=== PATIENT | female | born 1975 | race Caucasian/White ===

== ENCOUNTER → 2017-02-10 | Outpatient (CLI) | payer BC | LOC: FIMAGING 15:40 | PROVIDERS: ATTEND Internal Medicine Hematology & Oncology | DX: R25.2 Cramp and spasm (principal); E88.01 Alpha-1-antitrypsin deficiency ==

== ENCOUNTER → 2017-02-20 | Outpatient (CLI) | payer BC | LOC: FIMAGING 13:32 | DX: M79.662 Pain in left lower leg (principal); Z98.890 Other specified postprocedural states ==

== ENCOUNTER 2017-02-27 19:09 | Emergency (ER) | payer BC ==
[2017-02-27 19:17] VITALS: TEMP 98.8; O2SAT 100
--- NOTE | 2017-02-27 19:24 | EDPHY ---
H & P Stated Complaint: chest pain and left calf pain Time Seen by Provider: 02/27/17 19:23 HPI/ROS: CHIEF COMPLAINT: Resolved chest pain HISTORY OF PRESENT ILLNESS: The patient presents the ED after an episode of resolved chest pain. The patient is approximately 3 weeks status post left labial replacement. She does have a prior history of DVT. She has been on 40 mg of subcu Lovenox and surgery. Approximately week ago she did have left calf pain however ultrasound did not demonstrate evidence of DVT at that point time. Tonight the patient experienced a brief episode of left-sided sharp chest pain. The patient states that symptoms have abated. She denies any shortness of breath or pleuritic chest pain currently. REVIEW OF SYSTEMS: A comprehensive 10 point review of systems is otherwise negative aside from elements mentioned in the history of present illness. Source: Patient Exam Limitations: No limitations - Personal History LMP (Females 10-55): 1-7 Days Ago Current Tetanus/Diphtheria Vaccine: Yes Tetanus Vaccine Date: 2012 - Medical/Surgical History Hx Asthma: No Hx Chronic Respiratory Disease: No Hx Diabetes: No Hx Cardiac Disease: No Hx Renal Disease: No Hx Cirrhosis: No Hx Alcoholism: No Hx HIV/AIDS: No Hx Splenectomy or Spleen Trauma: No Other PMH: DVT 2015. bone graft to left hip-2015, labrium repair-2015, melanoma 2013, choleycystectomy, lasik surgery. - Social History Smoking Status: Never smoked - Physical Exam Exam: General Appearance: Alert, no distress Eyes: Pupils equal and round no pallor or injection ENT, Mouth: Mucous membranes moist Respiratory: There are no retractions, lungs are clear to auscultation Cardiovascular: Regular rate and rhythm Gastrointestinal: Abdomen is soft and nontender, no masses, bowel sounds normal Neurological: A&O, normal motor function, normal sensory exam, normal cranial nerves Skin: Warm and dry, no rashes Musculoskeletal: Neck is supple nontender Extremities: symmetrical, full range of motion Constitutional: Initial Vital Signs Temperature (C) 37.1 C 02/27/17 19:14 Heart Rate 92 02/27/17 19:14 Respiratory Rate 18 02/27/17 19:14 Blood Pressure 136/92 H 02/27/17 19:14 O2 Sat (%) 100 02/27/17 19:14 O2 Delivery Mode Room Air Allergies/Adverse Reactions: No Known Allergies Allergy (Unverified 02/27/17 19:17) Home Medications: Medication Instructions Recorded Enoxaparin [Lovenox 60 MG (*)] 50 mg SQ Q12 #10 syr 12/31/15 Medical Decision Making - Diagnostics EKG Interpretation: EKG: Complete interpretation has been separately recorded in the [employer] archive. Summary impression: Sinus rhythm, rate 78 ED Course/Re-evaluation: The patient presents to the ED after a brief episode of sharp resolved chest pain. All she does have a history of PE and DVT, she has been maintained Lovenox since her recent surgery. The patient had a negative ultrasound of her leg within the past week. The patient has a slightly elevated D-dimer of 0.51. We discussed the risks and benefits of performing CT angiography. At this point time the patient would like to hold off on that study and assess for any recurrent symptoms of chest pain or shortness of breath. I think that is reasonable. The patient understands to have a repeat ultrasound in 1 weeks time should she have any ongoing left calf pain. The patient will clearly return to the emergency department should she developed sharp chest pain, difficulty breathing, palpitations or other concerns. She will follow up with her regular oncologist Dr. Cely Suarez since as scheduled. She will continue to to take her Lovenox on a daily basis. Differential Diagnosis: Differential diagnosis considered includes DVT, PE, pleurisy - Data Points Laboratory Results: Laboratory Results 02/27/17 19:45 02/27/17 19:45 02/27/17 02/27/17 02/27/17 19:45 19:45 19:45 WBC 6.22 10^3/uL 10^3/uL (3.80-9.50) RBC 4.49 10^6/uL 10^6/uL (4.18-5.33) Hgb 14.3 g/dL g/dL (12.6-16.3) Hct 41.0 % % (38.0-47.0) MCV 91.3 fL fL (81.5-99.8) MCH 31.8 pg pg (27.9-34.1) MCHC 34.9 g/dL g/dL (32.4-36.7) RDW 12.6 % % (11.5-15.2) Plt Count 341 10^3/uL 10^3/uL (150-400) MPV 8.6 fL L fL (8.7-11.7) Neut % (Auto) 55.7 % % (39.3-74.2) Lymph % (Auto) 35.0 % % (15.0-45.0) [place] % (Auto) 5.6 % % (4.5-13.0) Eos % (Auto) 2.6 % % (0.6-7.6) Baso % (Auto) 0.6 % % (0.3-1.7) Nucleat RBC Rel Count 0.0 % % (0.0-0.2) Absolute Neuts (auto) 3.46 10^3/uL 10^3/uL (1.70-6.50) Absolute Lymphs (auto) 2.18 10^3/uL 10^3/uL (1.00-3.00) Absolute Monos (auto) 0.35 10^3/uL 10^3/uL (0.30-0.80) Absolute Eos (auto) 0.16 10^3/uL 10^3/uL (0.03-0.40) Absolute Basos (auto) 0.04 10^3/uL 10^3/uL (0.02-0.10) Absolute Nucleated RBC 0.00 10^3/uL 10^3/uL (0-0.01) Immature Gran % 0.5 % % (0.0-1.1) Immature Gran # 0.03 10^3/uL 10^3/uL (0.00-0.10) D-Dimer 0.51 ug/mLFEU H ug/mLFEU (0.00-0.50) Sodium 137 mEq/L mEq/L (134-144) Potassium 3.5 mEq/L mEq/L (3.5-5.2) Chloride 98 mEq/L mEq/L (97-110) Carbon Dioxide 26 mEq/l mEq/l (22-31) Anion Gap 13 mEq/L mEq/L (8-16) BUN 10 mg/dL mg/dL (7-23) Creatinine 0.7 mg/dL mg/dL (0.6-1.0) Estimated GFR > 60 Glucose 93 mg/dL mg/dL (70-100) Calcium 10.4 mg/dL mg/dL (8.5-10.4) Departure - Departure Disposition: Home, Routine, Self-Care Clinical Impression: Chest pain Condition: Good Instructions: Chest Pain (ED) Additional Instructions: 1. Please follow-up with your vice president of business development as scheduled. 2. Please return to the ED immediately for any protracted chest pain, difficulty breathing, worsening symptoms or other concerns. 3. Repeat lower extremity ultrasound in 1 week for any ongoing calf pain. 4. Continue Lovenox as prescribed. Referrals: Shakira Segovia MD [Primary Care Provider] - As per Instructions
--- NOTE | 2017-02-27 19:31 | CPEKG ---
Heart Rate: 78 RR Interval: 769 P-R Interval: 160 QRSD Interval: 84 QT Interval: 364 QTC Interval: 415 P [place]: 74 QRS [place]: 75 T Wave [place]: 39 EKG Severity - NORMAL ECG - EKG Impression: SINUS RHYTHM Electronically Signed By: Vishal Gama 27-Feb-2017 21:06:20
[2017-02-27 19:55] LABS: % IMMATURE GRANULYOCYTES 0.5 % (0.0-1.1); ABSOLUTE IMMATURE GRANULOCYTES 0.03 10^3/uL (0.00-0.10); ADD DIFF? NO; ADD MORPH? NO; ADD SCAN? NO; ATYPICAL LYMPHOCYTE FLAG 10 (0-99); FRAGMENT RBC FLAG 0 (0-99); HEMOGLOBIN 14.3 g/dL (12.6-16.3); LEFT SHIFT FLG 0 (0-99); LIPEMIA HEMOLYSIS FLAG 90 (0-99); MEAN CELL HEMOGLOBIN 31.8 pg (27.9-34.1); MEAN CELL HEMOGLOBIN CONCENTR. 34.9 g/dL (32.4-36.7); MEAN CELL VOLUME 91.3 fL (81.5-99.8); MEAN PLATELET VOLUME 8.6 fL (8.7-11.7); PLATELET CLUMPS FLAG 0 (0-99); PLATELET COUNT 341 10^3/uL (150-400); RED BLOOD CELL COUNT 4.49 10^6/uL (4.18-5.33); RED CELL DISTRIBUTION WIDTH 12.6 % (11.5-15.2)
[2017-02-27 20:10] LABS: ANION GAP 13 mEq/L (8-16); CALCIUM 10.4 mg/dL (8.5-10.4); CARBON DIOXIDE 26 mEq/l (22-31); CHLORIDE 98 mEq/L (97-110); CREATININE 0.7 mg/dL (0.6-1.0); GLOMERULAR FILTRATION RATE > 60; GLUCOSE 93 mg/dL (70-100); POTASSIUM 3.5 mEq/L (3.5-5.2); SODIUM 137 mEq/L (134-144)
[2017-02-27 20:56] VITALS: BP 110/66; PULSE 64; RESP 16
== END 2017-02-27 20:56 | disposition home or self-care (01) ==
DX: R07.9 Chest pain, unspecified (principal)

== ENCOUNTER → 2017-04-03 | Outpatient (CLI) | payer BC | LOC: FIMAGING 13:58 | PROVIDERS: ATTEND Obstetrics & Gynecology | DX: Z12.31 Encounter for screening mammogram for malignant neoplasm of breast (principal) | CPT/HCPCS: G0202 ==

== ENCOUNTER 2017-05-10 22:23 | Emergency (ER) | payer BC ==
[2017-05-10] MEDS ORDERED: NS 1,000 ML IV ONE (22:39)
--- NOTE | 2017-05-10 22:39 | EDPHY ---
H & P Stated Complaint: PVCs and high BP HPI/ROS: HPI CHIEF COMPLAINT: Hypertension, palpitations HISTORY OF PRESENT ILLNESS: This patient very pleasant 41-year-old female, she is otherwise healthy with no significant medical history except for DVT postoperatively, she distally has had hip surgery, she presents emergency room with palpitations and high blood pressure this evening. Patient reports on Monday she had some palpitations when she was trying to go to sleep she ignore these and then went to sleep. This evening she was trying to go to bed and notice palpitations she describes her heart as fast, and irregular. 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 She denies any chest pain or shortness of breath. She does endorse some nausea. She has no cardiac history. Never had a PE. She denies recent illness specifically denies fever or pleuritic pain. Past Medical History: Denies significant medical history except for DVT postoperatively. Past Surgical History: Hip surgery. Social History: Denies daily use drugs alcohol tobacco products. Works as a nurse. Family History: Noncontributory ROS REVIEW OF SYSTEMS: A comprehensive 10 point review of systems is otherwise negative aside from elements mentioned in the history of present illness. Exam Constitutional appears well nontoxic, triage nursing summary reviewed, vital signs reviewed, awake/alert. Eyes normal conjunctivae and sclera, EOMI, PERRLA. HENT normal inspection, atraumatic, moist mucus membranes, no epistaxis, neck supple/ no meningismus, no raccoon eyes. Respiratory clear to auscultation bilaterally, normal breath sounds, no respiratory distress, no wheezing. Cardiovascular rate normal, regular rhythm, no murmur, no edema, distal pulses normal. Gastrointestinal soft, non-tender, no rebound, no guarding, normal bowel sounds, no distension, no pulsatile mass. Genitourinary no CVA tenderness. Musculoskeletal no midline vertebral tenderness, full range of motion, no calf swelling, no tenderness of extremities, no meningismus, good pulses, neurovascularly intact. Skin pink, warm, & dry, no rash, skin atraumatic. Neurologic awake, alert and oriented x 3, AAOx3, moves all 4 extremities equally, motor intact, sensory intact, CN II-XII intact, normal cerebellar, normal vision, normal speech. Psychiatric normal mood/affect. Heme/Lymph/Immune no lymphadenopathy. Differential Diagnosis: Includes but is not limited to in a particular order electrolyte disturbance, anxiety, pulmonary embolism, cardiac arrhythmia, the pericarditis, myocarditis, pneumonia, PVC, hypertensive urgency Medical Decision Making: Plan for this patient full quality assurance monitor, IV establishment, EKG, check troponin, check D-dimer, check TSH, check electrolytes , gentle IV hydration Re-evaluation: EKG interpretation by me on record in [employer] system. Impression time of EKG 2240, sinus tachycardia rate of 105, PVC present. First-degree AV block present. Otherwise no acute ischemic change. 1232: Reassessment at this time. Patient resting comfortably. Denies chest pain or shortness of breath. Feels much better after IV fluids. Blood pressure improved to 140 systolic. I do see very infrequent PVCs on the monitor. Otherwise no signs of cardiac arrhythmia for the 3 hr that she has been here. Her EKG is nonischemic. I do recommend she follows up with Cardiology for palpitations on outpatient basis. Additionally I recommend she return emergency room if she develops chest pain shortness of breath or further palpitations or syncope. She is comfortable this plan. She is a nurse. I went over her blood work EKG lab results with her. ED x-ray chest one view: Negative for acute cardiopulmonary disease. Source: Patient - Personal History LMP (Females 10-55): 15-21 Days Ago Current Tetanus/Diphtheria Vaccine: Yes Current Tetanus Diphtheria and Acellular Pertussis (TDAP): Yes Tetanus Vaccine Date: 2012 - Medical/Surgical History Hx Asthma: No Hx Chronic Respiratory Disease: No Hx Diabetes: No Hx Cardiac Disease: No Hx Renal Disease: No Hx Cirrhosis: No Hx Alcoholism: No Hx HIV/AIDS: No Hx Splenectomy or Spleen Trauma: No Other PMH: DVT 2015. bone graft to left hip-2015, labrium repair-2015, melanoma 2013, choleycystectomy, lasik surgery. - Social History Smoking Status: Never smoked Constitutional: Initial Vital Signs Temperature (C) 36.7 C 05/10/17 22:25 Heart Rate 98 05/10/17 22:25 Respiratory Rate 16 05/10/17 22:25 Blood Pressure 166/90 H 05/10/17 22:25 O2 Sat (%) 99 05/10/17 22:25 O2 Delivery Mode Room Air Allergies/Adverse Reactions: No Known Allergies Allergy (Verified 05/10/17 22:28) Home Medications: Medication Instructions Recorded Pantoprazole Sodium [Protonix] 05/10/17 Medical Decision Making - Data Points Laboratory Results: Laboratory Results 05/10/17 22:45 05/10/17 22:45 05/10/17 05/10/17 05/10/17 22:45 22:45 22:45 WBC 10.85 10^3/uL H 10^3/uL (3.80-9.50) RBC 4.27 10^6/uL 10^6/uL (4.18-5.33) Hgb 13.2 g/dL g/dL (12.6-16.3) Hct 37.9 % L % (38.0-47.0) MCV 88.8 fL fL (81.5-99.8) MCH 30.9 pg pg (27.9-34.1) MCHC 34.8 g/dL g/dL (32.4-36.7) RDW 12.2 % % (11.5-15.2) Plt Count 233 10^3/uL 10^3/uL (150-400) MPV 8.6 fL L fL (8.7-11.7) Neut % (Auto) 59.0 % % (39.3-74.2) Lymph % (Auto) 32.1 % % (15.0-45.0) [place] % (Auto) 6.8 % % (4.5-13.0) Eos % (Auto) 1.4 % % (0.6-7.6) Baso % (Auto) 0.3 % % (0.3-1.7) Nucleat RBC Rel Count 0.0 % % (0.0-0.2) Absolute Neuts (auto) 6.41 10^3/uL 10^3/uL (1.70-6.50) Absolute Lymphs (auto) 3.48 10^3/uL H 10^3/uL (1.00-3.00) Absolute Monos (auto) 0.74 10^3/uL 10^3/uL (0.30-0.80) Absolute Eos (auto) 0.15 10^3/uL 10^3/uL (0.03-0.40) Absolute Basos (auto) 0.03 10^3/uL 10^3/uL (0.02-0.10) Absolute Nucleated RBC 0.00 10^3/uL 10^3/uL (0-0.01) Immature Gran % 0.4 % % (0.0-1.1) Immature Gran # 0.04 10^3/uL 10^3/uL (0.00-0.10) PT 12.9 SEC SEC (12.0-15.0) INR 0.95 (0.83-1.16) APTT 31.2 SEC SEC (23.0-38.0) D-Dimer 0.35 ug/mLFEU ug/mLFEU (0.00-0.50) Sodium 139 mEq/L mEq/L (134-144) Potassium 3.4 mEq/L L mEq/L (3.5-5.2) Chloride 102 mEq/L mEq/L (97-110) Carbon Dioxide 24 mEq/l mEq/l (22-31) Anion Gap 13 mEq/L mEq/L (8-16) BUN 11 mg/dL mg/dL (7-23) Creatinine 0.6 mg/dL mg/dL (0.6-1.0) Estimated GFR > 60 Glucose 102 mg/dL H mg/dL (70-100) Calcium 9.7 mg/dL mg/dL (8.5-10.4) Magnesium 1.8 mg/dL mg/dL (1.6-2.3) Total Bilirubin < 0.1 mg/dL L mg/dL (0.1-1.4) Conjugated Bilirubin 0.1 mg/dL mg/dL (0.0-0.5) Unconjugated Bilirubin 0.0 mg/dL mg/dL (0.0-1.1) AST 24 IU/L IU/L (14-46) ALT 26 IU/L IU/L (9-52) Alkaline Phosphatase 59 IU/L IU/L (38-126) Creatine Kinase 96 IU/L IU/L (0-156) CK-MB (CK-2) Fraction 0.81 ng/mL ng/mL (0.00-3.19) Troponin I < 0.012 ng/mL ng/mL (0.000-0.034) NT-Pro-B Natriuret Pep 64 pg/mL pg/mL (0-125) Total Protein 6.7 g/dL g/dL (6.3-8.2) Albumin 4.3 g/dL g/dL (3.5-5.0) TSH 3.840 uIU/mL uIU/mL (0.465-4.680) Medications Given: Discontinued Medications Sodium Chloride (Ns) 1,000 mls @ 0 mls/hr IV EDNOW ONE; Wide Open PRN Reason: Protocol Stop: 05/10/17 22:40 Last Admin: 05/10/17 22:57 Dose: 1,000 mls Departure - Departure Disposition: Home, Routine, Self-Care Clinical Impression: Palpitations Condition: Good Instructions: Heart Palpitations (ED) Additional Instructions: 1. Return emergency room if develops any worsening symptoms includes chest pain , shortness of breath 2. Please follow up with Cardiology outpatient basis. Referrals: Shakira Segovia MD [Primary Care Provider] - As per Instructions Luis Hancock MD [Medical Doctor] - As per Instructions
--- NOTE | 2017-05-10 22:42 | CPEKG ---
Heart Rate: 105 RR Interval: 571 P-R Interval: 208 QRSD Interval: 84 QT Interval: 344 QTC Interval: 455 P [place]: 73 QRS [place]: 82 T Wave [place]: -2 EKG Severity - ABNORMAL ECG - EKG Impression: SINUS TACHYCARDIA EKG Impression: VENTRICULAR PREMATURE COMPLEX EKG Impression: FIRST DEGREE AV BLOCK Electronically Signed By: Willie Farr 11-May-2017 07:19:27
[2017-05-10 23:11] LABS: % IMMATURE GRANULYOCYTES 0.4 % (0.0-1.1); ABSOLUTE IMMATURE GRANULOCYTES 0.04 10^3/uL (0.00-0.10); ADD DIFF? NO; ADD MORPH? NO; ADD SCAN? NO; ATYPICAL LYMPHOCYTE FLAG 0 (0-99); FRAGMENT RBC FLAG 0 (0-99); HEMATOCRIT 37.9 % (38.0-47.0); HEMOGLOBIN 13.2 g/dL (12.6-16.3); LEFT SHIFT FLG 0 (0-99); LIPEMIA HEMOLYSIS FLAG 90 (0-99); MEAN CELL HEMOGLOBIN 30.9 pg (27.9-34.1); MEAN CELL HEMOGLOBIN CONCENTR. 34.8 g/dL (32.4-36.7); MEAN CELL VOLUME 88.8 fL (81.5-99.8); MEAN PLATELET VOLUME 8.6 fL (8.7-11.7); PLATELET CLUMPS FLAG 0 (0-99); PLATELET COUNT 233 10^3/uL (150-400); RED BLOOD CELL COUNT 4.27 10^6/uL (4.18-5.33); RED CELL DISTRIBUTION WIDTH 12.2 % (11.5-15.2)
[2017-05-10 23:20] LABS: INR 0.95 (0.83-1.16); PROTIME(PATIENT) 12.9 SEC (12.0-15.0)
[2017-05-10 23:21] LABS: APTT 31.2 SEC (23.0-38.0)
[2017-05-10 23:26] LABS: ALANINE AMINOTRANSFERASE 26 IU/L (9-52); ALBUMIN 4.3 g/dL (3.5-5.0); ALKALINE PHOSPHATASE 59 IU/L (38-126); ANION GAP 13 mEq/L (8-16); ASPARTATE AMINOTRANSFERASE 24 IU/L (14-46); CALCIUM 9.7 mg/dL (8.5-10.4); CARBON DIOXIDE 24 mEq/l (22-31); CHLORIDE 102 mEq/L (97-110); CREATININE 0.6 mg/dL (0.6-1.0); GLOMERULAR FILTRATION RATE > 60; GLUCOSE 102 mg/dL (70-100); MAGNESIUM 1.8 mg/dL (1.6-2.3); POTASSIUM 3.4 mEq/L (3.5-5.2); SODIUM 139 mEq/L (134-144); TOTAL PROTEIN 6.7 g/dL (6.3-8.2)
[2017-05-10 23:29] VITALS: PULSE 90
[2017-05-10 23:34] LABS: BILIRUBIN,TOTAL < 0.1 mg/dL (0.1-1.4); BILIRUBIN-CONJUGATED 0.1 mg/dL (0.0-0.5)
[2017-05-10 23:39] LABS: CREATINE KINASE-MB FRACTION 0.81 ng/mL (0.00-3.19); TROPONIN I < 0.012 ng/mL (0.000-0.034)
[2017-05-11 00:42] VITALS: BP 122/74; RESP 18; TEMP 98.4; O2SAT 95
== END 2017-05-11 00:41 | disposition home or self-care (01) ==
DX: R00.2 Palpitations (principal); E86.9 Volume depletion, unspecified

== ENCOUNTER → 2018-04-04 | Outpatient (CLI) | payer BC | LOC: FIMAGING 11:36 | PROVIDERS: ATTEND Obstetrics & Gynecology | DX: Z12.31 Encounter for screening mammogram for malignant neoplasm of breast (principal) ==

== ENCOUNTER → 2018-05-17 | Outpatient (CLI) | payer BC | LOC: FIMAGING 08:52 | PROVIDERS: ATTEND Physical Medicine & Rehabilitation | DX: M54.6 Pain in thoracic spine (principal); Z85.820 Personal history of malignant melanoma of skin | CPT/HCPCS: 78306; A9503 ==

== ENCOUNTER → 2018-07-20 | Outpatient (CLI) | payer BC | LOC: FIMAGING 06:56 ==